=== PATIENT | male | born 1965 | race Caucasian/White ===

== ENCOUNTER 2019-09-09 12:07 | Emergency (ER) | payer OTHER, SELFPAY ==
--- NOTE | ~2019-09-09 | CT_ITS ---
EXAMINATION: CT brain wo con INDICATION: Left-sided numbness COMPARISON: 11/03/2015 TECHNIQUE: Standard unenhanced head CT. The dose-length product (DLP) was 605.33 mGy-cm. The mA was a djusted according to patient size. Iterative reconstruction technique was employed. FINDINGS: There is no intracranial hemorrhage, acute infarction, or abnormal mass lesion. There are o ld lacunar infarcts of the basal ganglia. The ventricles are normal. There is no abnormal mass effect or midline shift. Chronic encephalomalacia is noted in the right parietal lobe underlying a small bu rr hole. There is also chronic encephalomalacia in the medial aspect of the left frontal lobe. The ba miri cisterns are patent. There are changes of occipital and left frontal craniotomy. The orbits are n ormal. The paranasal sinuses, mastoids and calvarium are normal. IMPRESSION: 1. Chronic findings without acute intracranial abnormality. Reviewed, dictated and finalized at location B.
[2019-09-09 12:11] VITALS: BP 155/82; PULSE 74; RESP 20; TEMP 36.6; O2SAT 99
--- NOTE | 2019-09-09 12:25 | ED.GENADULT ---
HPI - General Adult General Chief complaint: Neuro Symptoms/Deficit Stated complaint: left sided tingling Time Seen by Provider: 09/09/19 12:25 Source: patient Mode of arrival: ambulatory Limitations: no limitations History of Present Illness HPI narrative: Patient is a 54-year-old male who presents for evaluation of numbness and tingling in his left upper extremity and lower extremity which is been intermittent. Patient denies any current numbness or tingling. He states he has had symptoms over the past week. Patient denies any chest pain, shortness of breath, trouble with speech, difficulty breathing. No fever, chills, nausea or vomiting. No history of stroke. Patient does have a history of brain tumor as a child at the age of 14. No recurrent cancers. Patient has had no difficulty with ambulation. No vision changes. Related Data Allergies Allergy/AdvReac Type Severity Reaction Status Date / Time No Known Allergies Allergy Unknown Unverified 11/03/15 12:59 Review of Systems Review of Systems: Narrative: CONSTITUTIONAL: Denies fever, chills, or sweats. EYES: Denies visual changes, redness, or discharge. ENT: Denies rhinorrhea, congestion, sore throat, or otalgia. CARDIOVASCULAR: Denies chest pain, palpitations, or edema. RESPIRATORY: Denies cough or dyspnea. GASTROINTESTINAL: Denies abdominal pain, nausea, vomiting, or diarrhea. GENITOURINARY: Denies dysuria or hematuria. SKIN: Denies rash or itching. MUSCULOSKELETAL: Denies back pain, joint pain, or myalgia. NEUROLOGIC: Denies headache, numbness, or weakness. [facility] Past Medical History Medical History History of brain tumor Family History Family History Mother Family history of malignant neoplasm of breast in first degree relative Other Cerebrovascular accident Family history of allergic disorder Family history of cardiovascular disease Social History Social History Smoking status: Never smoker Alcohol intake: current Exam Narrative: Exam Narrative: GENERAL: Awake, alert, conversant HEAD: Normocephalic, atraumatic. EYES: PERRLA and EOMI. ENT: Nares clear, no rhinorrhea or epistaxis. Mucous membranes moist. NECK: Supple. CHEST: No respiratory distress, breathing even and non labored HEART: Regular rate, sinus rhythm ABDOMEN:Non distended, non tender EXTREMITIES: Normal range of motion. No edema. SKIN: Warm, dry, no rash. NEURO:No focal deficits. Alert and oriented x3. Finger to nose intact bilaterally. EOMs intact without nystagmus. No facial droop/asymmetry noted bilaterally. Grimace intact. Intact sensation in face. Hearing intact bilaterally. Shoulder shrug intact. Strength 5/5 bilateral upper extremities. Strength 5/5 bilateral lower extremities. Reflexes 2+ patellar. Heel to davis intact bilaterally. Ambulatory exam deferred. Course Course Emergency Course: Pt presented for evaluation of intermittent left arm and leg tingling. None currently. Normal neurological exam. Pt with stable labs and CT Head. He does have thrombocytopenia, not severe enough to warrant transfusion, but this will definitely require outpatient work-up. I spoke with the patient's primary care provider regarding this, so that he can see him within the week and repeat blood work. No signs of bleeding at this point. No history of thrombocytopenia based on previous lab draws. Patient denies any nutritional deficiencies. Patient had no recurrent paresthesias. At this point, no neurological deficits to warrant admission. He was discharged home and advised to follow-up with his primary care provider. Vital Signs Vital signs: Vital Signs Temperature 36.6 C 09/09/19 12:11 Pulse Rate 74 09/09/19 12:11 Respiratory Rate 20 09/09/19 12:11 Blood Pressure 155/82 H 09/09/19 12:11 Pulse Oximetry 99 09/09/19 12:
--- NOTE | 2019-09-09 13:03 | ECG_ITS ---
Measurements Intervals [place] Rate: 78 P: 57 HI: 161 QRS: 11 QRSD: 90 T: 29 QT: 371 QTc: 423 Interpretive Statements SINUS RHYTHM ST EELVATION IN ANTEROLATERAL LEADS- PROBABLY EARLY REPOLARIZATION BASELINE ARTIFACT- V1 BORDERLINE ECG Electronically Signed On 09-09-2019 13:24:15 CDT by Harrison Rivera D.O.
[2019-09-09 13:17] LABS: Basophils Absolute Auto 0.1 K/mm3 (0.0-0.1); Basophils Percent Auto 1.3 % (0.2-1.2); Eosinophils Absolute Auto 0.2 K/mm3 (0-0.3); Eosinophils Percent Auto 4.1 % (0-4.4); Hematocrit 31.1 % (42.0-52.0); Hemoglobin 10.5 g/dL (14.0-18.0); Immature Granulocyte Absolute 0.02 K/mm3 (0.00-0.031); Immature Granulocyte Percent A 0.4 % (0-0.5); Lymphocytes Absolute Auto 1.58 K/mm3 (0.9-3.2); Lymphocytes Percent Auto 34.3 % (18.3-44.2); Mean Corpuscular HGB Conc 33.8 g/dl (32-36); Mean Corpuscular Hemoglobin 31.9 pg (26-34); Mean Corpuscular Volume 94.5 fl (80-100); Mean Platelet Volume 11.7 fl (7.4-10.4); Monocytes Absolute Auto 0.3 K/mm3 (0.1-0.6); Monocytes Percent Auto 7.2 % (2.6-8.5); Neutrophils Absolute Auto 2.4 K/mm3 (1.3-6.7); Neutrophils Percent Auto 52.7 % (45.5-73.1); Platelet Count Result 76 k/mm3 (150-375); Red Blood Count 3.29 M/mm3 (4.6-6.20); White Blood Count 4.6 K/mm3 (4.5-10.0)
[2019-09-09 13:31] LABS: Prothrombin Time 12.6 Seconds (11.1-14.7)
[2019-09-09 13:59] LABS: Blood Urea Nitrogen 22 mg/dL (9-20); Calcium 8.9 mg/dL (8.4-10.2); Carbon Dioxide 31 mmol/L (22-30); Chloride 103 mmol/L (98-107); Estimated CRCL calculation 110 ml/min; Estimated Glomerular Filt Rate > 60; Glucose 95 mg/dL (75-110); Potassium 3.9 mmol/L (3.4-5.0); Sodium 138 mmol/L (137-145)
[2019-09-09 14:10] LABS: Troponin I < 0.012 ng/mL (0.000-0.034)
[2019-09-09 14:41] VITALS: BP 124/98; PULSE 85; RESP 18; O2SAT 100
== END 2019-09-09 14:42 | disposition home or self-care (01) ==
PROVIDERS: Emergency Provider Emergency Medicine; PCP Internal Medicine
DX: R20.0 Anesthesia of skin (principal); R20.2 Paresthesia of skin; R94.31 Abnormal electrocardiogram [ECG] [EKG]
CPT/HCPCS: 36415; 70450; 80048; 84484; 85025; 85610; 85730; 93005; 99284

== ENCOUNTER → 2020-07-04 14:43 | Outpatient (CLI) | payer OTHER, SELFPAY ==
--- NOTE | ~2020-07-04 | MR_ITS ---
EXAMINATION: MR knee RT wo con DATE: 07/04/2020 15:46 INDICATION: Right knee pain. TECHNIQUE: Magnetic resonance imaging (MRI) of the right knee was performed without intravenous contr ast. Sequences included axial PD-weighted FS FSE, coronal PD-weighted FSE and PD-weighted FS FSE, sag ittal PD-weighted FSE, and sagittal T2-weighted FS FSE. COMPARISON: Right knee radiographs 06/28/2020 FINDINGS: Medial compartment: Medial meniscus is normal. There is cartilage surface irregularity of femoral condyle. Tibial cartila ge is normal. Lateral compartment: Lateral meniscus is normal. Lateral compartment cartilage is normal. Patellofemoral compartment: There is full-thickness cartilage loss of patellar medial facet with mild subchondral edema-like vangie ow signal intensity. There is cartilage surface irregularity of patellar lateral facet. There is deep partial thickness cartilage loss of medial trochlea with mild subchondral edema-like marrow signal i ntensity. Ligaments and tendons: The anterior and posterior cruciate ligaments are normal. There are changes of prior sprains of media l collateral ligament and fibular collateral ligament characterized by increased signal intensity pro ximally. The patellar tendon is normal. Fluid: There is a small knee joint effusion. There is mild superficial infrapatellar bursitis. There is mild edema in Hoffa's fat pad. IMPRESSION: 1. Severe chondrosis of patellofemoral compartment and mild chondrosis of medial compartment. 2. Small knee joint effusion. Reviewed, dictated and finalized at location A. DIAN BACON TIER IMPRESSION: 1. Severe chondrosis of patellofemoral compartment and mild chondrosis of media l compartment. 2. Small knee joint effusion.
== END ==
PROVIDERS: Visit Provider Nurse Practitioner Family
DX: M25.461 Effusion, right knee (principal)
CPT/HCPCS: 73721

== ENCOUNTER → 2020-07-31 00:46 | Outpatient (CLI) | payer OTHER, SELFPAY ==
[2020-07-31 19:08] LABS: SARS-CoV-2 RNA PCR Negative
== END ==
PROVIDERS: PCP Internal Medicine; Visit Provider Orthopaedic Surgery
DX: Z01.812 Encounter for preprocedural laboratory examination (principal); Z20.822 Contact with and (suspected) exposure to COVID-19
CPT/HCPCS: C9803; U0003; U0005

== ENCOUNTER 2020-08-03 01:01 | Day surgery (SDC) | payer OTHER, SELFPAY ==
[2020-07-30 18:06] VITALS: BMI 31.5
--- NOTE | 2020-08-02 13:47 | WPDANESEPPF ---
Anes - Initial Pre Proc Eval Procedure: Operation Date: 08/03/20 10:30 Proposed Procedures p Right Knee Arthroscopy, With Chondroplasty - Edgar Rayo MD Date/Time: 08/02/20 13:47 Surgeon: Edgar Rayo MD Pre Op Diagnosis: Right Knee Severe Patellafemoral Chondrosis Patient Data Age: 55 Gender: M Height: 1.78 m Weight: 99.79 kg Allergies Allergy/AdvReac Type Severity Reaction Status Date / Time No Known Allergies Allergy Unknown Verified 08/03/20 08:28 Home Medications Medication Instructions Recorded Confirmed Type atorvastatin 40 mg tablet 40 mg PO DAILY 06/28/20 08/03/20 History finasteride 5 mg tablet 5 mg PO DAILY 06/28/20 08/03/20 History olmesartan 20 mg tablet 20 mg PO DAILY 06/28/20 08/03/20 History meloxicam 15 mg PO DAILY 07/30/20 08/03/20 History Patient hx anesthesia problems: none Family hx anesthesia problems: none PMFSH Past Medical History Medical History (Updated 08/02/20 @ 13:48 by Favian Roberts MD) Chronic headaches COVID-19 Depression High cholesterol History of brain tumor History of stroke HTN (hypertension) Medial meniscus tear Obesity Patellofemoral chondrosis of right knee Pneumonia Right knee pain Sleep apnea SOB (shortness of breath) TIA (transient ischemic attack) Vision abnormalities Wheezing Surgical History Surgical History History of brain surgery Pt. had brain tumor (cancer) 1975 Family History Family History Mother Family history of malignant neoplasm of breast in first degree relative Other Cerebrovascular accident Family history of allergic disorder Family history of cardiovascular disease High cholesterol Hypertension Malignant neoplasm of prostate Social History Social History Smoking status: Never smoker Alcohol intake: current Drinks per week: 1 Living arrangements: alone Spiritual care concerns: No Anes - Eval Final PreProcedure Day of Procedure 08/02/20 13:47 Patient weight: obese Heart: regular rate and rhythm Lungs: clear to auscultation and normal air movement Airway: Mallampati scale class II Neurological: alert and oriented Last oral intake: >/= 8 hours ASA classification: III Emergent: no Anesthetic plan: proceed Anesthesia type and monitoring: general LMA Informed Consent: The patient's anesthetic plan and its attendant risks and benefits were discussed with the patient/family/POA. Questions were solicited and answers provided to the satisfaction of the patient/family/POA.
[2020-08-03] VITALS (10 sets, daily range): BP systolic 142–173; BP diastolic 86–105; PULSE 69–80; RESP 14–20; TEMP 36–36.9; O2SAT 98–100
--- NOTE | 2020-08-03 07:18 | WPDHPUPDATE1 ---
History and Physical Update Update Date/Time: 08/03/20 07:18 History and Physical has been reviewed, including an updated exam of the patient. There are NO changes in the patient's condition. Risks, benefits, and alternatives have been discussed and questions answered. Patient agrees to proceed with procedure.
[2020-08-03] MEDS: ACETAMINOPHEN 500 MG TABLET 1000 MG PO (08:43)
[2020-08-03] MEDS: CELECOXIB 200 MG CAPSULE PO (08:43)
[2020-08-03] MEDS: LACTATED RINGERS 1,000 ML 30 ML IV CONT (08:55)
[2020-08-03] MEDS: ceFAZolin 2 GM/D5W 50 ML 2 GM/50 ML BAG IVPB (10:48)
[2020-08-03] MEDS: BUPIVACAINE HCL 0.5% PF 30 ML VIAL INFILTRATE (11:33)
--- NOTE | 2020-08-03 11:54 | PM.PROC ---
Procedure Note - Detailed Date of procedure: 08/03/20 Pre-op diagnosis: Right Knee Severe Patellafemoral Chondrosis Post-op diagnosis: other (R KNEE OSTEOCHONDRAL SEFECT MEDIAL FEMORAL CONDYLE, CHONDROMALACIA, SYNOVITIS) Procedure performed: RIGHT KNEE SCOPE WITH ABRASION ARTHROPLASTY/MICRO FRACTURE TECHNIQUE, CHONDROPLASTY AND MAJOR SYNOVECTOMY Description of procedure: PATIENT WAS TAKEN TO THE OR. LEFT LEG WAS PREPPED AND DRAPED STERILE. TROCARS WERE PLACED IN THE USUAL FASHION. CAMERA WAS INTRODUCED. THERE WAS SEVERE CHONDROMALACIA TO THE PATELLA FEMORAL JOINT. MOST OF THE LESION WAS ON THE PATELLAR SURFACE THERE WAS A LOT OF SYNOVITIS IN THIS COMPARTMENT WELL. THE MEDIAL COMPARTMENT SHOWED NO CHONDROMALACIA TO THE MED FEMORAL CONDYLE AND NO MEDIAL MENISCUS TEAR. THE ACL WAS INTACT. THE LATERAL MENISCUS WAS NOT TORN. THE LATERAL COMPARTMENT HAD NO CHONDROMALACIA. A SYNOVECTOMY WAS PREFORMED IN THE PATELLO FEMORAL JOINT THEN THE PATELLA AND TROCHLEA UNDERWENT CHONDROPLASTY. THE SURFACE WAS SMOOTH AND THE PATELLA TRACKED WITHOUT TILT. THE INSTRUMENTS WERE REMOVED AFTER THOROUGH IRRIGATION OF THE KNEE JOINT. THE WOUNDS WERE APPROXIMATED WITH 4.0 NYLON. STERILE DRESSING WAS APPLIED. PATIENT WAS EXTUBATED. Anesthesia: GLMA Surgeon: Edgar Rayo MD Estimated blood loss (mL): 10 Complications: No immediate complications Condition: stable Disposition: PACU
[2020-08-03] MEDS: hydrALAZINE HCL 20 MG/ML VIAL 5 MG IV PUSH (12:20)
== END 2020-08-03 14:32 | disposition home or self-care (01) ==
PROVIDERS: PCP Internal Medicine; Visit Provider Orthopaedic Surgery
PROC: (CPT 29870; principal; 2020-08-03 10:30)
DX: M94.261 Chondromalacia, right knee (principal); M65.861 Other synovitis and tenosynovitis, right lower leg; M24.19 Other articular cartilage disorders, other specified site; I10 Essential (primary) hypertension; E78.00 Pure hypercholesterolemia, unspecified; G47.30 Sleep apnea, unspecified; Z86.73 Personal history of transient ischemic attack (TIA), and cerebral infarction without residual deficits; Z86.16 Personal history of COVID-19; E66.9 Obesity, unspecified; Z68.33 Body mass index [BMI] 33.0-33.9, adult; Z85.841 Personal history of malignant neoplasm of brain
CPT/HCPCS: 29879; 29876; A9270; C9803; J0360; J0690; J1100; J2250; J2405; J2704; J3010; J7120; U0003; U0005